=== PATIENT | female | born 2000 | race Caucasian/White ===

== ENCOUNTER 2022-08-22 11:59 | Inpatient (IN) ==
[2022-08-22] MEDS ORDERED: CITRIC ACID/SODIUM CITRATE 30 ML UDCUP PO ONE (12:13)
[2022-08-22] MEDS ORDERED: ceFAZolin 2,000 MG/50 ML DUPLEX IV ONE (12:13)
[2022-08-22] MEDS ORDERED: METHYLERGONOVINE 0.2 MG/1 ML AMP IM PRN (12:13)
[2022-08-22] MEDS ORDERED: miSOPROStoL 200 MCG TABLET RECTAL PRN (12:13)
[2022-08-22] MEDS ORDERED: CARBOPROST TROMETHAMINE 250 MCG/ML AMP IM PRN (12:13)
[2022-08-22] MEDS ORDERED: OXYTOCIN/LR 20 UNIT/1,000 ML BAG IV ONE (12:13)
[2022-08-22] MEDS ORDERED: TRANEXAMIC ACID 1,000 MG in SODIUM CHLORIDE 0.9% 100 ML IV PRN (12:13)
[2022-08-22] MEDS ORDERED: OXYTOCIN/LR 30 UNIT/1,000 ML BAG IV ONE (12:18)
[2022-08-22] MEDS ORDERED: OXYTOCIN 10 UNIT/ML VIAL IM ONE (12:18)
[2022-08-22 12:39] LABS: Basophils # 0.1 10*3/uL (0.0-0.2); Eosinophils # 0.3 10*3/uL (0.0-0.87); Eosinophils % 2.4 % (0.00-10.9); Hemoglobin 8.4 GM/DL (12.0-16.0); Immature Granulocytes % 0.6 %; Immature Granulocytes Absolute 0.08 #; Lymphocytes # 2.7 10*3/uL (1.4-4.0); Lymphocytes % 20.5 % (21.3-54.2); Mean Corpuscular HGB Conc 31.1 GM/DL (32-36); Mean Corpuscular Volume 79.6 FL (87-102); Mean Platelet Volume 11.5 FL (9.6-12.0); Monocytes % 7.3 % (1.7-12.7); NRBC # 0.02 10*3/uL; Neutrophils % 68.2 % (38.7-73.9); Platelet Count 247 T/CUMM (130-400); Red Blood Count 3.39 MC/CUMM (3.8-5.5); Red Cell Distribution Width 15.3 % (9.3-17.3); White Blood Count 13.2 T/CUMM (4-12)
[2022-08-22 12:42] LABS: Bacteria,Urine Occasional /HPF (Few); Mucus,Urine Occasional /LPF (Occasional); RBC,Urine 2 /HPF (0-4); Squamous Epithelial Cell,Urine Occasional /HPF (0-10)
[2022-08-22 12:48] LABS: Bilirubin,Urine Negative (Negative); Blood, Urine Negative (Negative); Glucose,Urine (UA) Negative (Negative); Ketones,Urine Negative (Negative); Nitrite,Urine Negative (Negative); Protein,Urine 100 mg/dL (Negative); Urine Appearance Slightly Hazy (Clear); Urine Color Yellow (Yellow); Urine Specific Gravity 1.015 (1.001-1.035); Urine Urobilinogen 0.2 eU/dL (<2.0)
[2022-08-22 12:50] LABS: INR 0.9; PT Patient Result 10.2 SECS (10.1-12.1); Partial Thromboplastin Time 27.1 SECS (23.7-32.9)
[2022-08-22 13:06] LABS: Alanine Aminotransferase 12 U/L (13-56); Albumin 2.6 G/DL (3.4-5.0); Alkaline Phosphatase 192 U/L (45-117); Aspartate Amino Transferase 15 U/L (0-37); Bilirubin,Total < 0.39 MG/DL (0.20-1.00); Blood Urea Nitrogen 8 MG/DL (7-18); Calcium 9.6 MG/DL (8.5-10.1); Carbon Dioxide 25 MMOL/L (21-32); Chloride 108 MMOL/L (98-107); Glucose 85 MG/DL (74-106); Osmolality,Calculated 275.4 MOS/KG (273-304); Potassium 3.8 MMOL/L (3.5-5.1); Sodium 140 MMOL/L (136-145); Total Protein 6.2 G/DL (6.4-8.2)
[2022-08-22 13:08] LABS: Bilirubin,Direct < 0.100 MG/DL (0.0-0.20); Uric Acid 5.6 MG/DL (2.6-6.0)
[2022-08-22] MEDS ORDERED: NIFEdipine 10 MG CAPSULE PO ONE (13:09)
[2022-08-22 14:03] LABS: Barbiturates Screen,Urine Negative (Negative); Benzodiazepines Screen,Urine Negative (Negative); Cannabinoid Screen,Urine Negative (Negative); Opiate Screen,Urine Negative (Negative); Phencyclidine Screen,Urine Negative (Negative)
[2022-08-22] MEDS: AMPICILLIN INJ 2,000 MG in SODIUM CHLORIDE 0.9% 100 ML IV SCH ×2 (14:09→19:46)
[2022-08-22] MEDS: LACTATED RINGERS 1,000 ML IV SCH (14:09)
[2022-08-22] MEDS ORDERED: ACETAMINOPHEN 500 MG TABLET PO PRN (19:31)
[2022-08-23 06:21] LABS: Basophils # 0.1 10*3/uL (0.0-0.2); Eosinophils # 0.4 10*3/uL (0.0-0.87); Eosinophils % 3.1 % (0.00-10.9); Hematocrit 26.4 VOL% (35.7-47.0); Hemoglobin 8.1 GM/DL (12.0-16.0); Immature Granulocytes % 0.7 %; Immature Granulocytes Absolute 0.09 #; Lymphocytes # 3.1 10*3/uL (1.4-4.0); Lymphocytes % 23.3 % (21.3-54.2); Mean Corpuscular HGB Conc 30.7 GM/DL (32-36); Mean Corpuscular Volume 78.3 FL (87-102); Mean Platelet Volume 11.3 FL (9.6-12.0); Monocytes # 0.8 10*3/uL (0.11-0.8); Monocytes % 6.1 % (1.7-12.7); NRBC # 0.02 10*3/uL; Neutrophils % 65.8 % (38.7-73.9); Platelet Count 219 T/CUMM (130-400); Red Blood Count 3.37 MC/CUMM (3.8-5.5); Red Cell Distribution Width 15.1 % (9.3-17.3); White Blood Count 13.2 T/CUMM (4-12)
[2022-08-23] MEDS: AMPICILLIN INJ 2,000 MG in SODIUM CHLORIDE 0.9% 100 ML IV SCH (06:54)
[2022-08-23] MEDS: LACTATED RINGERS 1,000 ML IV SCH (10:48)
[2022-08-23] MEDS ORDERED: ONDANSETRON 4 MG/2 ML VIAL ONE (12:13)
[2022-08-23] MEDS ORDERED: KETOROLAC 30 MG/1 ML VIAL ONE (12:13)
[2022-08-23] MEDS ORDERED: buprenorphine HCL 0.3 MG/ML VIAL ONE (12:13)
[2022-08-23] MEDS ORDERED: DEXAMETHASONE 4 MG/1 ML VIAL ONE ×2 (12:13→13:42)
[2022-08-23] MEDS ORDERED: PHENYLEPHRINE 1 MG/10 ML SYRINGE IV ONE (12:13)
[2022-08-23] MEDS ORDERED: ACETAMINOPHEN INJ 1,000 MG/100 ML VIAL IV ONE (12:13)
[2022-08-23] MEDS ORDERED: METHYLERGONOVINE 0.2 MG/1 ML AMP ONE (13:32)
[2022-08-23] MEDS ORDERED: miSOPROStoL 200 MCG TABLET ONE (13:32)
[2022-08-23] MEDS ORDERED: CARBOPROST TROMETHAMINE 250 MCG/ML AMP IM ONE (13:33)
[2022-08-23] MEDS ORDERED: ceFAZolin 2,000 MG/50 ML DUPLEX IV ONE (13:36)
[2022-08-23] MEDS ORDERED: OXYTOCIN 10 UNIT/ML VIAL IM ONE (13:36)
[2022-08-23] MEDS ORDERED: FAMOTIDINE 20 MG/2 ML VIAL IV ONE (13:46)
[2022-08-23] MEDS ORDERED: CITRIC ACID/SODIUM CITRATE 30 ML UDCUP PO ONE (13:46)
[2022-08-23] MEDS ORDERED: OXYTOCIN/LR 30 UNIT/1,000 ML BAG IV ONE (14:00)
[2022-08-23 14:57] LABS: Squamous Epithelial Cell,Urine Occasional /HPF (0-10)
[2022-08-23 14:58] LABS: Cord Venous Blood HCO3 22.6 MMOL/L; Cord Venous Blood PCO2 46.4 MMHG; Cord Venous Blood PO2 26.2
[2022-08-23 14:59] LABS: Glucose,Urine (UA) Negative (Negative); Ketones,Urine 15 mg/dL (Negative); Protein,Urine 100 mg/dL (Negative); Urine Appearance Clear (Clear); Urine Color Yellow (Yellow); Urine pH 7.5 (4.5-8.0)
[2022-08-23 15:00] LABS: Bilirubin,Urine Negative (Negative); Blood, Urine Negative (Negative); Nitrite,Urine Negative (Negative); Urine Urobilinogen 0.2 eU/dL (<2.0)
[2022-08-23] MEDS ORDERED: SIMETHICONE CHEW 80 MG TABLET PO PRN (15:03)
[2022-08-23] MEDS ORDERED: OXYTOCIN/LR 20 UNIT/1,000 ML BAG IV ONE (15:03)
[2022-08-23] MEDS ORDERED: RHO(D) IMMUNE GLOBULIN 300 MCG SYRINGE IM ONE (15:03)
[2022-08-23] MEDS ORDERED: ONDANSETRON 4 MG/2 ML VIAL IV PRN (15:03)
[2022-08-23] MEDS ORDERED: ACETAMINOPHEN 325 MG TABLET PO PRN (15:03)
[2022-08-23] MEDS ORDERED: LACTATED RINGERS 1,000 ML IV SCH (15:30)
[2022-08-23] MEDS ORDERED: NIFEdipine 10 MG CAPSULE PO ONE ×2 (16:42→17:19)
[2022-08-23] MEDS: KETOROLAC 30 MG/1 ML VIAL IV SCH (20:40)
[2022-08-23 21:59] LABS: Basophils # 0.1 10*3/uL (0.0-0.2); Basophils % 0.3 % (0.0-0.8); Hematocrit 23.7 VOL% (35.7-47.0); Hemoglobin 7.5 GM/DL (12.0-16.0); Immature Granulocytes % 0.8 %; Immature Granulocytes Absolute 0.16 #; Lymphocytes # 1.3 10*3/uL (1.4-4.0); Lymphocytes % 6.3 % (21.3-54.2); Mean Corpuscular HGB Conc 31.6 GM/DL (32-36); Mean Corpuscular Volume 77.5 FL (87-102); Mean Platelet Volume 10.9 FL (9.6-12.0); Monocytes # 0.1 10*3/uL (0.11-0.8); Monocytes % 0.7 % (1.7-12.7); Neutrophils % 91.9 % (38.7-73.9); Platelet Count 229 T/CUMM (130-400); Red Blood Count 3.06 MC/CUMM (3.8-5.5); Red Cell Distribution Width 14.8 % (9.3-17.3)
[2022-08-23 22:25] LABS: Eosinophils 1 % (0-10); Hypochromia 1+; Lymphocytes 6 % (20-55); Platelet Estimate Normal; Total Cells Counted 100
[2022-08-23 22:26] LABS: Microcytosis Slight
[2022-08-24] MEDS: ACETAMINOPHEN 500 MG TABLET PO SCH ×2 (02:58→08:40)
[2022-08-24] MEDS: KETOROLAC 30 MG/1 ML VIAL IV SCH (03:01)
[2022-08-24] MEDS: DOCUSATE SODIUM 100 MG CAPSULE PO SCH ×3 (03:02→20:12)
[2022-08-24] MEDS ORDERED: MEPERIDINE 25 MG/1 ML VIAL IV ONE (04:30)
[2022-08-24] MEDS ORDERED: SODIUM CHLORIDE 0.9% 1,000 ML IV PRN (05:58)
[2022-08-24] MEDS ORDERED: BENZOCAINE/MENTHOL LOZENGE 18/BOX PO PRN (07:06)
[2022-08-24] MEDS: MAGNESIUM HYDROXIDE SUSP 30 ML UDCUP PO PRN (08:37)
[2022-08-24] MEDS: MULTIVITAMIN (PRENATAL) TABLET PO SCH (08:38)
[2022-08-24] MEDS ORDERED: INFLUENZA VIRUS VACCINE 0.5 ML SYRINGE IM ONE (09:00)
[2022-08-24] MEDS: IBUPROFEN 800 MG TABLET PO PRN ×2 (13:39→20:13)
[2022-08-24 18:17] LABS: Basophils # 0.1 10*3/uL (0.0-0.2); Basophils % 0.4 % (0.0-0.8); Eosinophils # 0.1 10*3/uL (0.0-0.87); Eosinophils % 0.3 % (0.00-10.9); Hematocrit 26.6 VOL% (35.7-47.0); Hemoglobin 8.5 GM/DL (12.0-16.0); Immature Granulocytes % 0.9 %; Immature Granulocytes Absolute 0.19 #; Lymphocytes # 3.4 10*3/uL (1.4-4.0); Lymphocytes % 16.2 % (21.3-54.2); Mean Corpuscular Volume 80.9 FL (87-102); Mean Platelet Volume 10.9 FL (9.6-12.0); Monocytes # 1.4 10*3/uL (0.11-0.8); Monocytes % 6.5 % (1.7-12.7); NRBC # 0.02 10*3/uL; Neutrophils % 75.7 % (38.7-73.9); Platelet Count 238 T/CUMM (130-400); Red Blood Count 3.29 MC/CUMM (3.8-5.5); Red Cell Distribution Width 15.6 % (9.3-17.3); White Blood Count 21.1 T/CUMM (4-12)
[2022-08-24 19:02] LABS: Eosinophils 1 % (0-10); Lymphocytes 15 % (20-55); Total Cells Counted 100
[2022-08-24 19:03] LABS: Anisocytosis 1+; Hypochromia Slight; Microcytosis 1+; Platelet Estimate Adequate; Polychromasia Slight
[2022-08-24] MEDS: CLINDAMYCIN INJ 900 MG/50 ML PREMIX IV SCH (20:12)
[2022-08-24] MEDS: GENTAMICIN INJ 280 MG in SODIUM CHLORIDE 0.9% 100 ML IV SCH (21:04)
[2022-08-24] MEDS: ceFAZolin 2,000 MG/50 ML DUPLEX IV SCH (22:25)
[2022-08-25] MEDS: CLINDAMYCIN INJ 900 MG/50 ML PREMIX IV SCH ×3 (04:33→21:20)
[2022-08-25 04:52] LABS: Basophils # 0.1 10*3/uL (0.0-0.2); Basophils % 0.6 % (0.0-0.8); Eosinophils # 0.3 10*3/uL (0.0-0.87); Eosinophils % 1.4 % (0.00-10.9); Hemoglobin 8.3 GM/DL (12.0-16.0); Immature Granulocytes % 0.9 %; Immature Granulocytes Absolute 0.18 #; Lymphocytes % 20.5 % (21.3-54.2); Mean Corpuscular HGB Conc 30.7 GM/DL (32-36); Mean Corpuscular Volume 82.8 FL (87-102); Mean Platelet Volume 10.7 FL (9.6-12.0); Monocytes # 1.1 10*3/uL (0.11-0.8); Monocytes % 5.3 % (1.7-12.7); NRBC # 0.02 10*3/uL; Neutrophils % 71.3 % (38.7-73.9); Platelet Count 257 T/CUMM (130-400); Red Blood Count 3.26 MC/CUMM (3.8-5.5); Red Cell Distribution Width 15.7 % (9.3-17.3); White Blood Count 19.7 T/CUMM (4-12)
[2022-08-25 05:20] LABS: Alanine Aminotransferase 12 U/L (13-56); Albumin 2.3 G/DL (3.4-5.0); Alkaline Phosphatase 134 U/L (45-117); Aspartate Amino Transferase 21 U/L (0-37); Bilirubin,Total < 0.39 MG/DL (0.20-1.00); Blood Urea Nitrogen 6 MG/DL (7-18); Calcium 8.2 MG/DL (8.5-10.1); Carbon Dioxide 28 MMOL/L (21-32); Chloride 107 MMOL/L (98-107); Glucose 69 MG/DL (74-106); Osmolality,Calculated 272.5 MOS/KG (273-304); Potassium 3.6 MMOL/L (3.5-5.1); Sodium 139 MMOL/L (136-145); Total Protein 5.6 G/DL (6.4-8.2)
[2022-08-25] MEDS: ceFAZolin 2,000 MG/50 ML DUPLEX IV SCH ×3 (05:46→22:04)
[2022-08-25] MEDS: MULTIVITAMIN (PRENATAL) TABLET PO SCH (08:14)
[2022-08-25] MEDS: DOCUSATE SODIUM 100 MG CAPSULE PO SCH ×2 (08:15→21:20)
[2022-08-25] MEDS: IBUPROFEN 800 MG TABLET PO PRN (17:59)
[2022-08-25] MEDS: GENTAMICIN INJ 280 MG in SODIUM CHLORIDE 0.9% 100 ML IV SCH (23:15)
[2022-08-26] MEDS: IBUPROFEN 800 MG TABLET PO PRN (05:12)
[2022-08-26] MEDS: MAGNESIUM HYDROXIDE SUSP 30 ML UDCUP PO PRN (05:19)
[2022-08-26 09:45] VITALS: BP 139/86
[2022-08-26] MEDS: DOCUSATE SODIUM 100 MG CAPSULE PO SCH (10:09)
[2022-08-26] MEDS: MULTIVITAMIN (PRENATAL) TABLET PO SCH (10:09)
== END 2022-08-26 13:30 | disposition home or self-care (01) | DRG 540 ==
LOC: N.LDOUT 11:59 → N.LD 12:00 → N.OB 08-23 18:20
PROVIDERS: ADMIT Obstetrics & Gynecology; ATTEND Obstetrics & Gynecology
PROC: LDCSECT (ICD-10-PCS; 2022-08-23 14:00)